=== PATIENT | male | born 1995 | race Two or more races ===

== ENCOUNTER 2017-06-26 13:03 | Emergency (ER) | payer MEDICARE, OTHER ==
[~2017-06-26] VITALS: Ht 175.3 cm; Wt 97.5 kg
[2017-06-26 13:18] VITALS: BP 135/87
--- NOTE | 2017-06-26 13:48 | Emergency Room Report ---
History of Present Illness General Chief Complaint: Skin Rash/Abscess Source: Patient Present Illness HPI 21-year-old male presents to the emergency department complaining of multiple itching insect bites to the upper extremities and the posterior nape of his neck x3 days. Patient reports swelling, erythema and moderate itching he denies fevers, chills. Denies lesions/rashes elsewhere on the body. Denies new medications or body washes or creams. Denies swelling of the lips, tongue , throat or airway. Denies wheezing, or shortness of breath. Denies recent travel , recent illness or ill contacts. denies blisters, oral lesions, or sloughing of the skin. Denies CP, Palpitations, LOC, AMS, dizziness, Changes in Vision, Sensation, paresthesias, or a sudden severe headache. Allergies: Coded Allergies: No Known Allergies (Unverified , 06/26/17) Patient History Past Medical History: see triage record Past Surgical History: none Pertinent Family History: none Immunizations: UTD Reviewed Nursing Documentation: PMH: Agreed, PSxH: Agreed Nursing Documentation-PMH Past Medical History: No History, Except For History Of Psychiatric Problem: Yes - bipolar disorder Review of Systems All Other Systems: negative except mentioned in HPI Physical Exam Vital Signs Date Time Temp Pulse Resp B/P (MAP) Pulse Ox O2 Delivery O2 Flow Rate FiO2 06/26/17 13:08 99.0 84 16 135/87 99 Room Air Sp02 EP Interpretation: reviewed, normal General Appearance: no apparent distress, alert, GCS 15, non-toxic Head: normocephalic, atraumatic Eyes: bilateral eye normal inspection, bilateral eye PERRL ENT: hearing grossly normal, normal pharynx, no angioedema, normal voice Neck: full range of motion Respiratory: lungs clear, normal breath sounds, no wheezing, speaking full sentences Cardiovascular #1: regular rate, rhythm Cardiovascular #2: 2+ carotid (R), 2+ carotid (L), 2+ radial (R), 2+ radial (L) , 2+ dorsalis pedis (R), 2+ dorsalis pedis (L) Gastrointestinal: normal bowel sounds, non tender, soft, no rebound Rectal: deferred Musculoskeletal: back normal, gait/station normal, normal range of motion Neurologic: alert, oriented x3, responsive, motor strength/tone normal, sensory intact, speech normal Skin: normal color, warm/dry, well hydrated, rash - multiple discrete erythematous and slightly indurated papules on the bilateral upper extremities and the posterior nape, no vesices, no blisters, no evidence of secondary infection. Medical Decision Making PA Attestation Dr. thomas is my supervising Physician whom patient management has been discussed with. Diagnostic Impression: Primary Impression: Insect bites Qualified Codes: W57.XXXA - Bitten or stung by nonvenomous insect and other nonvenomous arthropods, initial encounter ER Course 21-year-old male presents to the emergency department complaining of multiple itching insect bites to the upper extremities and the posterior nape of his neck x3 days. Patient reports swelling, erythema and moderate itching he denies fevers, chills. Denies lesions/rashes elsewhere on the body. Denies new medications or body washes or creams. Denies swelling of the lips, tongue , throat or airway. Denies wheezing, or shortness of breath. Denies recent travel , recent illness or ill contacts. denies blisters, oral lesions, or sloughing of the skin. Denies CP, Palpitations, LOC, AMS, dizziness, Changes in Vision, Sensation, paresthesias, or a sudden severe headache. Ddx considered but are not limited to cellulitis, scabies, insect bites, tic bites, spider bites, contact dermatitis, Drug reaction, allergic reaction, fungal infection, lice. Vital signs: are WNL, pt. is afebrile H&PE are most consistent with insect bites no signs of infection or significant allergic reaction requiring emergent treatment at this time. ORDERS: none required at this time, the diagnosis is clinical ED INTERVENTIONS: None required at this time. DISCHARGE: At this time pt. is stable for d/c to home. Will provide printed patient care instructions, and any necessary prescriptions. Care plan and follow up instructions have been discussed with the patient prior to discharge. Last Vital Signs Date Time Temp Pulse Resp B/P (MAP) Pulse Ox O2 Delivery O2 Flow Rate FiO2 06/26/17 13:18 99.0 16 135/87 99 Room Air 06/26/17 13:08 84 Disposition: HOME, SELF-CARE Condition: Stable Scripts Mupirocin Calcium (Bactroban) 15 Gm Cream..g. 1 APPLIC TOPIC THREE TIMES A DAY, #15 GM Prov: Sabine Gonzalez 06/26/17 Hydrocortisone (Hydrocortisone Cream 2.5%) Y Cream.appl 1 APPLIC TP BID, #28.3 GM Prov: Sabine Gonzalez 06/26/17 Diphenhydramine Hcl (BENADRYL ALLERGY) 25 Mg Tablet 25 MG PO Q6HR, #20 TAB Prov: Sabine Gonzalez 06/26/17 Referrals: NOT CHOSEN IPA/MD,REFERRING (PCP) Patient Instructions: Insect Bite Additional Instructions: Take medications as directed. DO NOT SCRATCH BITES you have bacteria under the nails and this can cause you to get a secondary bacterial infection Follow up with a Primary Care Provider in 3-5 days, even if your symptoms have resolved. --Please review list of primary care clinics, if you do not already have a primary care provider Return sooner to ED if new symptoms occur, or current symptoms become worse. Do not drink alcohol, drive, or operate heavy machinery while taking Benadryl as this may cause drowsiness. - Please note that this Emergency Department Report was dictated using [employer] case detective technology software, occasionally this can lead to erroneous entry secondary to interpretation by the dictation equipment. Sabine Gonzalez Jun 26, 2017 13:48
[2017-06-26] MEDS ORDERED: HYDROCORTISONE30 G2 TP (13:49)
[2017-06-26] MEDS ORDERED: BENADRYL ALLERG25 M1 PO (13:49)
[2017-06-26] MEDS ORDERED: BACTROBAN CR1 APPLIC TOPIC (13:49)
[2017-06-26 14:01] VITALS: BP 135/87
== END 2017-06-26 14:00 | disposition home or self-care (01) ==
LOC: EMR 13:35
DX: S40.862A Insect bite (nonvenomous) of left upper arm, initial encounter (principal); S40.861A Insect bite (nonvenomous) of right upper arm, initial encounter; S10.86XA Insect bite of other specified part of neck, initial encounter; W57.XXXA Bitten or stung by nonvenomous insect and other nonvenomous arthropods, initial encounter; Y92.9 Unspecified place or not applicable; F31.9 Bipolar disorder, unspecified
CPT/HCPCS: 99284